=== PATIENT | female | born 1950 | race Hispanic/Latino ===

== ENCOUNTER 2025-07-17 11:55 | Emergency (ER) | payer OTHER ==
[~2025-07-17] VITALS: Ht 142.2 cm; Wt 43.1 kg
[2025-07-17] MEDS: ORPHENADRINE 60MG/2ML IM ONE (13:34)
[2025-07-17] MEDS: TRIAMCINOLONE ACETONIDE 40 MG/ML 1ML VIAL IM ONE (13:34)
--- NOTE | 2025-07-17 13:45 | ERN ---
ED Note History of Present Illness Stated Complaint: BACK PAIN Chief Complaint: Back Pain or Injury Time Seen by MD: 12:28 Time Seen by Midlevel: 12:28 Dictation: The patient is a 75-year-old female with a history of herniated disc, hysterectomy, osteoporosis who presents to the emergency department with nontraumatic left buttocks pain that radiates down her left leg onset two weeks ago. Patient reports she has had this pain in the past but has never been this bad in usually does not last this long. Reports she was told she had herniated disc. Patient otherwise denies any urinary or fecal incontinence, denies any numbness or tingling to lower extremities. Denies any weakness. Denies any fevers or any other associated symptoms. Allergies: Coded Allergies: No Known Drug Allergies (Unverified Allergy, Unknown, 07/17/25) Past Medical History Past Medical History: Other Additional Past Medical Hx: OSTEOPOROSIS Surgical History: None RN Note Reviewed/Agreed w/PFSH: Yes Review of System Dictation Constitutional: Negative for fever,chills, and weight loss Eyes: Negative for injury, pain,redness, and discharge ENT: Negative for injury,pain or swelling Cardiovascular: Negative for chest pain, palpitations, and edema Respiratory: Negative for shortness of breath, cough, and wheezing, Abdomen/GI: Negative for abdominal pain, nausea, vomiting, diarrhea, and constipation Back: Negative for injury and pain : Negative for injury, bleeding and discharge MS/Extremity: Positive for left buttocks pain Skin: Negative for rash, and discoloration Neuro: Negative for headache, weakness, numbness, tingling, and seizure Psych: Negative for suicide ideation, homicidal ideation, and hallucinations Initial Vital Sign VS Vital Signs Date Time Temp Pulse Resp B/P (MAP) Pulse Ox O2 Delivery O2 Flow Rate FiO2 07/17/25 11:56 98.1 80 18 125/74 97 Physical Exam Dictation Vital Signs reviewed General Appearance: Alert, oriented x 3, no acute distress, well developed, nourished. Head and Face: non-traumatic. Eyes: PERRL, pink conjunctivas, eyelid no trauma, anterior chamber with arcus senilis. Ears: Pinnas intact and no signs of trauma or erythema ear canals clear and no discharge TM no erythema Nose: No discharge, no bleeding. Oropharynx: Mouth normal, tongue pink. pharynx clear,no erythema, tonsils no exudates, no abscesses noted, mucous membrane moist Neck: Supple, non-tender, no thyromegaly, no masses, no JVD, no bruits Breast:Deferred Chest:No tenderness, no crepitus, no paradoxical movement, no retractions Lungs:Clear, well-ventilated, symmetric, no rales, no wheezing, no rhonchi, no stridor, good breath sounds bilaterally Heart: Regular rate, regular rhythm, no murmur, no gallops Vascular: no peripheral edema, dorsalis pedis 3+ bilaterally Abdomen: Soft, positive bowel sounds, nondistended, no guarding, nontender, no rebound, no masses no hepatomegaly, no splenomegaly, no Thompson's sign, no hernias. Rectal: Deferred Genital: Deferred Neurological: Normal speech, motor function intact, sensory function intact Musculoskeletal: Neck nontender, full range of motion, back nontender, full range of motion, Extremities: nontender, full range of motion , left buttocks tenderness, no tenderness to lower back Skin: Color pink, dry, no turgor, no rash, no lacerations, no abrasions, no contusions. Lymphatic: Deferred Results (Laboratory/Radiology) Laboratory/Radiology REASON: pain ORDERING PHYSICIAN: SAEID THORPE GINNING OPERATOR PROCEDURE: LUMB 2 3VW - LUMBAR SPINE 2-3VWS STUDY CR Lumbar Spine, 3 View CLINICAL HISTORY Pain COMPARISON None available. FINDINGS Bones Lumbar vertebral body heights are preserved without radiographic evidence of acute fracture or aggressive osseous lesion. Alignment There is grade I anterolisthesis of L4 on L5, attributed to facet joint degenerative change and facet subluxation. No significant scoliosis is identified. Discs and degenerative changes There is moderate degenerative lumbar spondylosis with osteophyte formation and facet arthropathy, most pronounced at the lower lumbar levels. Intervertebral disc space narrowing is noted at L5S1, while other disc spaces are relatively preserved. Soft tissues The visualized paraspinal soft tissues are unremarkable. IMPRESSION * Moderate degenerative lumbar spondylosis with grade I anterolisthesis of L4 on L5 secondary to facet joint degeneration and associated facet subluxation. * Disc space narrowing at L5S1 without radiographic evidence of acute lumbar spine fracture. /[facility] Reviewed?: Yes ED Course ED Course Orders Procedure Category Date Status Time Lumbar Spine 2-3vws RAD 07/17/25 Resulted 13:17 Orphenadrine Citrate PHA 07/17/25 Complete (Norflex) 13:30 Triamcinolone Acet PHA 07/17/25 Complete 40mg/Ml 1ml (Kenalog 13:30 Acetaminophen 500mg PHA 07/17/25 In Process Tab (Tylenol 500mg T 15:00 Current Medications Medications (Trade) Dose Ordered Sig/Yadi Route PRN Reason Start Time Stop Time Status Last Admin Dose Admin Acetaminophen (TYLenol 500MG TAB) 1,000 mg ONCE ONCE PO 07/17/25 15:00 07/17/25 15:01 Orphenadrine Citrate (Norflex) 60 mg ONCE ONCE IM 07/17/25 13:30 07/17/25 13:31 DC 07/17/25 13:34 Triamcinolone Acetonide (Kenalog 40) 40 mg ONCE ONCE IM 07/17/25 13:30 07/17/25 13:31 DC 07/17/25 13:34 Vital Signs Date Time Temp Pulse Resp B/P (MAP) Pulse Ox O2 Delivery O2 Flow Rate FiO2 07/17/25 11:56 98.1 80 18 125/74 97 Medical Decision Making MDM The patient is a 75-year-old female with a history of herniated disc, hysterectomy, osteoporosis who presents to the emergency department with nontraumatic left buttocks pain that radiates down her left leg onset two weeks ago. Patient reports she has had this pain in the past but has never been this bad in usually does not last this long. Reports she was told she had herniated disc. Patient otherwise denies any urinary or fecal incontinence, denies any numbness or tingling to lower extremities. Denies any weakness. Denies any fevers or any other associated symptoms. Lumbar x-ray showed no acute fractures. Degenerative changes. Patient with no tenderness to lower back. Her main complaint is left buttocks pain. Reports that she has had this pain before but it was exacerbated in these past two weeks. Patient otherwise with no saddle anesthesia, no urinary or fecal incontinence. Patient is ambulatory. Patient reports feeling better after medication administration. Imaging and discharge planning discussed with the patient and patient's family. Patient at this time feels well enough to go home and follow up with primary doctor. Patient instructed to return if anything worsens. Differential diagnosis: Sciatic nerve pain, lumbar osteoarthritis, lumbar fracture Need for hospitalization: Patient does not meet criteria for hospitalization. There are no social concerns with this patient. DX & DISP Disposition: Discharge Departure Impression: Primary Impression: Left sciatic nerve pain Condition: Stable Scripts Lidocaine (Lidocaine Pain Relief) 4 % Adh..patch 1 PATCH TP DAILY for 10 Days, #10 PATCH 0 Refills Prov: SAEID THORPEP 07/17/25 Cyclobenzaprine HCl (Cyclobenzaprine HCl) 5 Mg Tablet 1 TAB PO TIDP PRN for muscle spasms for 10 Days, #30 TAB 0 Refills Prov: THORPE,[facility]ID [facility] 07/17/25 Additional Instructions: With your primary doctor in 1-2 days. If anything worsens or changes please return to ER. You can take Tylenol as needed for pain at home. FOLLOW-UP WITH PRIMARY CARE PROVIDER IN 1 TO 2 DAYS. TAKE MEDICATIONS DIREC OUSMANE HERE IN THE EMERGENCY ROOM. OKAY TO CONTINUE HOME MEDICATIONS UNLESS OTHERWISE DISCUSSED DURING YOUR VISIT IN THE EMERGENCY ROOM TODAY. RETURN TO YOUR NEAREST EMERGENCY ROOM IF SYMPTOMS WORSEN OR IF THERE IS NO IMPROVEMENT. CALL 911 IF YOU NEED IMMEDIATE ASSISTANCE. TAKE TYLENOL [id number] NEEDED AND IF NO CONTRAINDICATIONS ARE PRESENT. INCREASE ORAL HYDRATION. A WOUND CULTURE OR URINE CULTURE WAS ORDERED HERE IN THE EMERGENCY ROOM DEPARTMENT PLEASE FOLLOW-UP WITH PRIMARY CARE PROVIDER AND ADVISE THEM TO GET REPEAT PORTS FROM OUR FACILITY. IF YOU HAD ANY CHANCE WRAP/SPLINTS THAT WERE APPLIED HERE, PLEASE DO NOT REMOVE THEM UNTIL YOU SEE YOUR PRIMARY CARE OR SPECIALTY. Referrals: CHARLOTTE BASS MD (PCP) Time of Disposition: 15:02 I have reviewed the case, and I agree with, Diagnosis and Plan ILASAEID GINNING OPERATOR Jul 17, 2025 13:45
--- NOTE | 2025-07-17 14:37 | HMCIMG ---
STUDY CR Lumbar Spine, 3 View CLINICAL HISTORY Pain COMPARISON None available. FINDINGS Bones Lumbar vertebral body heights are preserved without radiographic evidence of acute fracture or aggressive osseous lesion. Alignment There is grade I anterolisthesis of L4 on L5, attributed to facet joint degenerative change and facet subluxation. No significant scoliosis is identified. Discs and degenerative changes There is moderate degenerative lumbar spondylosis with osteophyte formation and facet arthropathy, most pronounced at the lower lumbar levels. Intervertebral disc space narrowing is noted at L5S1, while other disc spaces are relatively preserved. Soft tissues The visualized paraspinal soft tissues are unremarkable. IMPRESSION * Moderate degenerative lumbar spondylosis with grade I anterolisthesis of L4 on L5 secondary to facet joint degeneration and associated facet subluxation. * Disc space narrowing at L5S1 without radiographic evidence of acute lumbar spine fracture. /[place]
[2025-07-17] MEDS ORDERED: CYCL5TAB3 PO (15:02)
[2025-07-17] MEDS ORDERED: LIDO1ADH71 TP (15:02)
[2025-07-17 15:09] VITALS: BP 122/59; PULSE 77; RESP 16; TEMP 98; O2SAT 99
== END 2025-07-17 15:17 | disposition home or self-care (01) ==
LOC: EDH 11:55
DX: M54.42 Lumbago with sciatica, left side (principal); M81.0 Age-related osteoporosis without current pathological fracture; Z90.710 Acquired absence of both cervix and uterus
CPT/HCPCS: 99283; 72100; 96372 ×2; J3301; J2360